=== PATIENT | female | born 2005 | race Caucasian/White ===

== ENCOUNTER 2023-04-18 19:09 | Emergency (ER) | payer BC ==
[2023-04-18] MEDS ORDERED: Cyclobenzaprine 10 MG TAB ONE (20:03)
[2023-04-18] MEDS ORDERED: Ibuprofen 200 MG TAB ONE (20:04)
== END 2023-04-18 21:22 | disposition home or self-care (01) ==
LOC: CSHERS 19:09
DX: S29.012A Strain of muscle and tendon of back wall of thorax, initial encounter (principal); S09.90XA Unspecified injury of head, initial encounter; F17.200 Nicotine dependence, unspecified, uncomplicated; W55.12XA Struck by horse, initial encounter
CPT/HCPCS: 70450; 72070; 72125